=== PATIENT | female | born 2000 | race Caucasian/White ===

== ENCOUNTER 2024-07-08 16:47 | Emergency (ER) | payer BC ==
[~2024-07-08] VITALS: Ht 157.5 cm; Wt 93.4 kg
[2024-07-08 17:52] LABS: BASOPHILS % (AUTO) 0.4 % (0-1); EOSINOPHILS # (AUTO) 0.3 X10'3 (0-0.9); EOSINOPHILS % (AUTO) 3.6 % (0-6); HEMATOCRIT 42.8 % (35.0-45.0); HEMOGLOBIN 13.6 g/dl (12.0-16.0); LYMPHOCYTES # (AUTO) 2.2 X10'3 (1.1-4.8); LYMPHOCYTES % (AUTO) 27.9 % (21-51); MEAN CORPUSCULAR HEMOGLOBIN 25.1 PG (27.0-31.0); MEAN CORPUSCULAR HGB CONC 31.8 g/dL (33.0-36.5); MEAN PLATELET VOLUME 7.3 FL (7.4-10.4); MONOCYTES # (AUTO) 0.6 X10'3 (0-0.9); MONOCYTES % (AUTO) 7.9 % (2-12); NEUTROPHILS # (AUTO) 4.8 X10'3 (1.8-7.7); NEUTROPHILS % (AUTO) 60.2 % (42-75); PLATELET COUNT 325 X10'3 (140-440); RED BLOOD COUNT 5.42 X10'6 (4.20-5.60); RED CELL DISTRIBUTION WIDTH 13.5 % (11.5-14.5)
[2024-07-08 18:03] LABS: ALANINE AMINOTRANSFERASE 33 U/L (12-78); ALBUMIN 3.8 G/DL (3.4-5.0); ALKALINE PHOSPHATASE 91 IU/L (46-116); AMYLASE 78 U/L (25-115); ANION GAP 8 (8-16); ASPARTATE AMINO TRANSFERASE 16 U/L (10-37); BILIRUBIN,TOTAL 0.2 MG/DL (0.1-1.0); BLOOD UREA NITROGEN 10 MG/DL (7-18); BUN/CREATININE RATIO 15.2 (10.0-20.0); CALCIUM 8.8 MG/DL (8.5-10.1); CHLORIDE 104 MMOL/L (99-107); CREATININE 0.66 MG/DL (0.40-0.90); GLUCOSE 100 MG/DL (70-104); LIPASE 24 U/L (16-77); POTASSIUM 4.5 MMOL/L (3.5-5.1); SODIUM 138 MMOL/L (135-145); TOTAL CARBON DIOXIDE 25.8 MMOL/L (24-32); TOTAL PROTEIN 7.8 G/DL (6.4-8.2); eCRCL 105 ML/MIN; eGFR > 90 ML/MIN
[2024-07-08 18:19] LABS: URINE HCG NEGATIVE (NEG)
[2024-07-08 18:34] LABS: BILIRUBIN,URINE NEGATIVE (Neg); CLARITY,URINE CLEAR (Clear); COLOR,URINE YELLOW (Yellow); GLUCOSE, URINE NEGATIVE (Neg); KETONES,URINE NEGATIVE (Neg); LEUKOCYTE ESTERASE ,URINE SMALL (Neg); NITRITES, URINE NEGATIVE (Neg); OCCULT BLOOD,URINE NEGATIVE (Neg); PROTEIN,URINE NEGATIVE (Neg); UROBILINOGEN,URINE 0.2 E.U/dL (0.2-1.0)
[2024-07-08] MEDS: ketorolac trometh 15mg/ml vial 15 MG/ML ML IM ONE (18:35)
[2024-07-08 18:36] LABS: UA COLLECTION TYPE CLN CATCH MIDSTREAM
[2024-07-08 18:43] LABS: BACTERIA,URINE 1+ /HPF (Neg); MUCUS STRANDS FEW /LPF (Neg); RBC,URINE 0-2 /HPF (0-2); RENAL CELLS, URINE FEW /HPF; SQUAMOUS EPITHELIAL CELL,UR FEW /LPF (FEW)
[2024-07-08] MEDS ORDERED: CEPH-585 PO (18:50)
[2024-07-08 19:16] VITALS: BP 110/58; PULSE 70; RESP 16; TEMP 98.5; O2SAT 99
== END 2024-07-08 19:17 | disposition home or self-care (01) ==
LOC: ER 16:47
DX: N39.0 Urinary tract infection, site not specified (principal); R10.11 Right upper quadrant pain; R10.30 Lower abdominal pain, unspecified
CPT/HCPCS: 36415; 76700; 80053; 81001; 81025; 82150; 83690; 85025; 87088; 96372; 99285; J1885; 87077; 87186

== ENCOUNTER 2024-08-26 16:49 | Emergency (ER) | payer BC ==
[~2024-08-26] VITALS: Ht 157.5 cm; Wt 92.7 kg
[2024-08-26 16:51] VITALS: BP 138/96; PULSE 98; RESP 16; O2SAT 100
[2024-08-26 18:06] VITALS: TEMP 98.4
== END 2024-08-26 18:07 | disposition home or self-care (01) ==
LOC: ER 16:50
DX: H53.8 Other visual disturbances (principal); G43.909 Migraine, unspecified, not intractable, without status migrainosus
CPT/HCPCS: 82948; 99282

== ENCOUNTER 2024-10-09 19:00 | Emergency (ER) | payer BC ==
[~2024-10-09] VITALS: Ht 160 cm; Wt 81.0 kg
[2024-10-09 19:09] VITALS: BP 113/69; PULSE 86; RESP 15; O2SAT 98
[2024-10-09] MEDS ORDERED: ONDA-243 PO (22:58)
[2024-10-09 23:12] VITALS: TEMP 97.8
== END 2024-10-09 23:19 | disposition home or self-care (01) ==
LOC: ER 19:00
DX: J22 Unspecified acute lower respiratory infection (principal); G43.909 Migraine, unspecified, not intractable, without status migrainosus; Z79.899 Other long term (current) drug therapy
CPT/HCPCS: 99283